=== PATIENT | female | born 1965 | race Hispanic/Latino ===

== ENCOUNTER 2024-10-18 17:54 | Emergency (ER) | payer SELFPAY ==
[2024-10-18 18:07] VITALS: BP 172/102
[2024-10-18 18:42] LABS: % Basophils 0.2 % (0-2); % Eosinophils 0.1 % (0-6); % Immature Granulocytes 0.1 % (0-0.5); % Lymphocytes 24.3 % (20.5-51.1); % Monocytes 7.6 % (1.7-9.3); % Neutrophils 67.7 % (42.2-75.2); Absolute Lymphocytes 2.1 10^3/uL (1.2-3.4); Absolute Monocytes 0.7 10^3/uL (0.1-0.6); Absolute Neutrophils 5.9 10^3/uL (1.4-6.5); Hematocrit 42.5 % (37.0-47.0); Hemoglobin 14.4 g/dL (12.0-16.0); Mean Corp Hgb Conc. 33.9 g/dL (33.0-37.0); Mean Corpuscular Hgb 27.9 pg (27.0-31.0); Mean Corpuscular Volume 82.4 fL (81.0-99.0); Mean Platelet Volume 9.6 fL (7.4-10.4); Nucleated Red Blood Cells % 0 %; Platelet Count 354 10^3/uL (130-400); Red Blood Cell Count 5.16 10^6/uL (4.20-5.40); Red Cell Dist. Width 13.3 % (11.5-14.5); White Blood Cell Count 8.8 10^3/uL (4.8-10.8)
[2024-10-18 18:59] LABS: ALT (SGPT) 37 U/L (0-35); AST (SGOT) 29 U/L (14-36); Albumin 4.7 g/dl (3.5-5.0); Alkaline Phosphatase 96 U/L (38-126); Blood Urea Nitrogen 8 mg/dl (7-17); Carbon Dioxide 27 mmol/L (22-30); Chloride 98 mmol/L (98-107); Glucose 132 mg/dl (70-99); Potassium 3.4 mmol/L (3.5-5.1); Sodium 135 mmol/L (135-145); Total Bilirubin 0.8 mg/dl (0.2-1.3); Total Protein 7.9 g/dl (6.3-8.2); eGFR > 60.00
[2024-10-18 19:05] LABS: Troponin I < 0.012 ng/ml
[2024-10-18 20:22] VITALS: BP 174/104
--- NOTE | 2024-10-18 20:57 | ED.GENMED ---
History of Present Illness
General
Chief Complaint: Musculo-Skeletal Complaint
Source: patient and portfolio lead (Provides history from patient)
Exam Limitations: none
Time Seen by Provider: 10/18/24 20:40
Nursing documentation reviewed up to this point in time: agreed with
History of Present Illness
History of Present Illness:
59-year-old female presents emergency department complaining of right arm and shoulder pain, and headache. She denies chest pain. This began last night. She denies any specific injury. She denies any shortness of breath.
Past History
Past History
ED Past Medical History: HTN
ED Past Surgical History: None
Social History
Tobacco: Non-smoker
Alcohol: None
Drug: None
Living: with family
Employment: Employed
Review of Systems
Review of Systems
Allergies reviewed?: Yes
All Other Systems: Not applicable
Constitutional: Reports no symptoms
EENT: Reports no symptoms
Respiratory: Reports no symptoms
Cardiac: Reports no symptoms
ABD/GI: Reports no symptoms
: Reports no symptoms
Musculoskeletal: Reports joint pain and muscle pain
Skin: Reports no symptoms
Neurological: Reports headache
Endocrine: Reports no symptoms
Hematologic/Lymphatic: Reports no symptoms
Psychiatric: Reports no symptoms
Phy Exam
Physical Exam
Physical Exam:
Physical Exam
General: no apparent distress, not acutely ill
Neck: supple. no meningeal signs. normal posterior pharynx
Heart: s1/s2 regular rate and rhythm, no murmur. equal radial
pulses.
HEENT: Pupils equal round reactive to light, EOMI
Lungs: no acute respiratory distress. clear bilaterally
Abdomen: normal bowel sounds. not tender. no CVAT
Neuro: alert and oriented. no focal neurological deficits cranial nerves II through XII intact
Skin: no rash
Psychiatric: well kept. interactive and cooperative
Extremities: no edema. no calf tenderness. negative homans. good distal pulses, right shoulder tender to palpation
Course
Orders/Labs/Results
Orders:
Orders
10/18/24 18:21
EKG [Electrocardiogram (*1)] Urgent
Reason for Study: Other
Other Reason for Exam: right arm pain
EKG- Treatment ONCE
10/18/24 18:32
Complete Blood Count/With Diff Urgent
Comprehensive Metabolic Panel Urgent
Troponin I Urgent
10/18/24 21:44
Amlodipine [Norvasc] 5 mg PO STAT STA
Abnormal Lab Results
10/18/24
18:32
Absolute Monos (auto) 0.7 H 10^3/uL
(0.1-0.6)
Potassium 3.4 L mmol/L
(3.5-5.1)
Glucose 132 H mg/dl
(70-99)
ALT 37 H U/L
(0-35)
10/18/24 18:32
10/18/24 18:32
Vital Signs
Initial and Last Documented VS:
Initial Vital Signs
Temp Pulse Resp BP Pulse Ox
98.5 F 101 17 172/102 98
10/18/24 18:07 10/18/24 18:07 10/18/24 18:07 10/18/24 18:07 10/18/24 18:07
Last Documented Vital Signs
Temp Pulse Resp BP Pulse Ox
98.5 F 101 17 177/93 98
10/18/24 18:07 10/18/24 18:07 10/18/24 18:07 10/18/24 21:34 10/18/24 18:07
MDM/Problems Addressed
Differential Diagnosis Includes:
acs, pe
MDM/Problems Addressed:
59-year-old female with right arm pain, suspect musculoskeletal cause. Tender to palpation pain with range of motion. Blood pressure elevated. Denies headache at this time. Doubt intracranial hemorrhage or CVA. Doubt PE. Stable for discharge.
Will add amlodipine. Follow-up with primary care.
Chronic conditions affecting care: HTN
Acute Exacerbation and/or Progression of Chronic Illness: HTN
*Pulse Oximetry
Patient hypoxic: no
*EKG
Interpreted by ED Provider?: Yes
EKG Intrepretation Date: 10/18/24
EKG Intrepretation Time: 18:25
Interpretation: abnormal
Comparison EKG: no comparison EKG present
Heart Rate: 83
Rate: normal
Rhythm: sinus
Lucinda: normal axis
Interval: normal interval
QRS Pattern: normal QRS
Ischemia: non-specific ST changes
*Flat Bed Knitter Interpretation
Rate: Flat Bed Knitter- N/A
*Critical Care Note
Total Time (30-74mins, 75-104mins- exclusive of procedures): Not Applicable
Patient Management
Social determinants of health affecting care: Living situation and Strong social support
Escalation/DeEscalation of care consider admission/obs:
Admit not indicated
ED Attending Note
-
Portions of this chart may have been created with voice recognition software.� Occasional wrong word or��sound alike� substitutions may have occurred due to the inherent limitations of voice recognition software.
Discharge Plan
Departure
Patient Disposition: Home (Routine Discharge)
Date of Disposition: 10/18/24
Time of Disposition: 21:49
Patient with high blood pressure during this ER visit?: Yes
Condition: Good
Discharge Problem:
Acute pain of right shoulder, Hypertension
Instructions: Shoulder pain, High blood pressure - ED discharge instructions, BLOOD PRESSURE
Prescriptions:
New
amlodipine 5 mg tablet
5 mg PO DAILY Qty: 30 0RF
Referrals:
NONE,* [Family Provider] -
Interventions
Interventions:
*Risk Screen - Suicide Last Done: 10/18/24 18:08
*General Assessment Last Done: 10/18/24 18:08
*Neglect/Abuse Screening Last Done: 10/18/24 18:08
*ED COVID-19 Vaccine History Last Done: 10/18/24 18:08
ED-Musculoskeletal Assessment Last Done: 10/18/24 20:18
Discharge Date and Time
Print Language: PORTUGUESE
[2024-10-18 21:34] VITALS: BP 177/93
[2024-10-18] MEDS: NORVASC 5 MG PO (22:03)
== END 2024-10-18 22:11 | disposition home or self-care (01) ==
LOC: EMR 17:54
PROVIDERS: EMERGENCY PHYSICIAN Emergency Medicine
DX: M25.511 Pain in right shoulder (principal); I10 Essential (primary) hypertension
CPT/HCPCS: 99284; 80053; 84484; 85025; 93005